=== PATIENT | female | born 1950 | race Caucasian/White ===

== ENCOUNTER → 2021-03-26 11:38 | Outpatient (CLI) | payer MEDICARE, SELFPAY ==
--- NOTE | ~2021-03-26 | US_ITS ---
US retroperitoneal comp 03/26/2021 11:55 Procedure: Realtime transabdominal ultrasound of the kidneys and bladder. Indication: Chronic UTI Comparison: IVP dated 03/16/2005 Findings: Renal echotexture is normal bilaterally without contour deforming mass or renal calculus. T here is mild bilateral hydronephrosis. The right kidney measures 9.7 cm and left kidney measures 10.6 cm. Bladder within normal limits. Impression: 1: Mild bilateral hydronephrosis. Reviewed, dictated and finalized at location A. Impression: 1: Mild bilateral hydronephrosis.
== END ==
PROVIDERS: Visit Provider Nurse Practitioner Adult Health
DX: N39.0 Urinary tract infection, site not specified (principal)
CPT/HCPCS: 76770

== ENCOUNTER 2021-03-30 14:03 | Outpatient (CLI) | payer MEDICARE, SELFPAY ==
--- NOTE | ~2021-03-30 | CT_ITS ---
EXAMINATION: CT abdomen pelvis wo con EXAM DATE: 03/30/2021 14:30 INDICATION: BI hydronephrosis . Lower pelvic pressure, frequent urinary tract infections. TECHNIQUE: Spiral CT of the abdomen and pelvis was performed without contrast. Axial, coronal and sag ittal images were reviewed. The dose-length product (DLP) for this examination was 575.57 mGy-cm. T he exposure was tailored according to patient size (auto mA exposure control), and iterative reconstr uction (ASIR) was used as additional dose reduction technique. There is no prior study for compariso n. FINDINGS: There is no nephrolithiasis or hydronephrosis. The uterus is unremarkable. The bladder is unremarkable. The liver, spleen, adrenal glands and pancreas are unremarkable. Gallbladder not i dentified, patient likely has had cholecystectomy. There is no retroperitoneal or pelvic lymphadenop athy. There is moderate scattered arteriosclerotic disease. The appendix is normal. There is moderate sigmoid predominant colonic diverticulosis. There is no ad jacent inflammatory change to suggest diverticulitis. There is moderate-sized gastroesophageal hiatal hernia. There is expected amount of colonic stool. No free intraperitoneal gas. The heart is no rmal in size. There are no pericardial or pleural effusions. The lung bases are unremarkable. Ther e are no osteoblastic or osteolytic lesions identified. Indeterminate left breast elongated tissue measuring 1.8 x 8.4 cm on axial images, could be normal fi broglandular tissue but correlation with mammogram indicated if not recently performed. Left hip arth roplasty hardware. IMPRESSION: 1. No nephrolithiasis, hydronephrosis or acute intra-abdominal findings. 2. Left breast soft tissue density; recommend mammogram if not recently performed. 3. Moderate-sized hiatal hernia. 4. Moderate sigmoid diverticulosis. Reviewed, dictated and finalized at location G. IMPRESSION: 1. No nephrolithiasis, hydronephrosis or acute intra-abdominal findings. 2. Left breast soft tissue density; recommend mammogram if not recently perfor med. 3. Moderate-sized hiatal hernia. 4. Moderate sigmoid diverticulosis.
--- NOTE | ~2021-03-30 | XR_ITS ---
EXAMINATION: XR abdomen/kub 1V EXAM DATE: 03/30/2021 14:27 INDICATION: BI hydronephrosis TECHNIQUE: Frontal projection(s) of the abdomen for interpretation. No prior study. FINDINGS: There is expected amount of colonic stool and gas. No small bowel dilation, nonobstructi ve bowel gas pattern. There are no suspicious calcifications identified. There is no organomegaly suspected. The bones are unremarkable. There is left hip arthroplasty hardware in position. IMPRESSION: Unremarkable abdomen x-ray exam. Reviewed, dictated and finalized at location G.
== END 2021-03-30 14:04 | disposition home or self-care (01) ==
LOC: ANHIMG 14:10
PROVIDERS: PCP Internal Medicine; Visit Provider Nurse Practitioner Adult Health
DX: N13.30 Unspecified hydronephrosis (principal); K44.9 Diaphragmatic hernia without obstruction or gangrene; K57.30 Diverticulosis of large intestine without perforation or abscess without bleeding
CPT/HCPCS: 74018; 74176